=== PATIENT | female | born 1965 | race Caucasian/White ===

== ENCOUNTER 2016-12-01 19:29 | Emergency (ER) | payer OTHER ==
[2016-12-01] MEDS ORDERED: ACETAMINOPHEN WITH CODEINE 300MG/30MG TABLET PO ONE (19:49)
[2016-12-01 19:50] VITALS: BP 150/87; PULSE 86; TEMP 97.9; BMI 23.8
[2016-12-01] MEDS ORDERED: ACETAMINOPHEN WITH CODEINE 300MG/30MG TABLET ONE (20:42)
[2016-12-01] MEDS ORDERED: traMADol HCL 50 MG TABLET PO ONE (20:55)
--- NOTE | 2016-12-01 21:02 | PDOC ---
History of Present Illness - General Chief Complaint: Toothache Stated Complaint: TOOTHACHE Time Seen by Provider: 12/01/16 20:03 History Source: Patient - History of Present Illness Timing/Duration: other Past History - Past Medical History Allergies/Adverse Reactions: Allergies Allergy/AdvReac Type Severity Reaction Status Date / Time No Known Allergies Allergy Verified 12/01/16 19:47 Home Medications: Ambulatory Orders Aspirin [ASA -] 81 mg PO DAILY 06/15/15 Insulin Aspart [Novolog] 0 unit SQ AC 06/15/15 Insulin Glargine,Hum.rec.anlog [Lantus (nf)] 5 units SQ HS 06/15/15 Mycophenolate Mofetil [Cellcept -] 500 mg PO BID 06/15/15 Sitagliptin Phosphate [Januvia] 100 mg PO DAILY 06/15/15 Tacrolimus [Prograf] 2 mg PO BID 06/15/15 Oxycodone HCl [Roxicodone -] 5 mg PO Q6H #20 tablet 06/20/15 Tramadol HCl 50 mg PO Q6H #20 tablet MDD 200 12/01/16 Anemia: Yes Asthma: No Cancer: No Cardiac Disorders: No CVA: Yes COPD: No CHF: No Dementia: No Diabetes: Yes Dialysis: Yes GI Disorders: No Disorders: Yes (renal failure on dialysis //THURSDAY.) HTN: Yes Hypercholesterolemia: Yes Liver Disease: No Seizures: No Thyroid Disease: No - Surgical History Abdominal Surgery: No Appendectomy: No Cardiac Surgery: No Cholecystectomy: No Lung Surgery: No Neurologic Surgery: No Orthopedic Surgery: Yes (R. Shoulder) - Immunization History Immunization Up to Date: Yes - Psycho/Social/Smoking Cessation Hx Anxiety: No Suicidal Ideation: No Smoking Status: No Smoking History: Never smoked Have you smoked in the past 12 months: No Number of Cigarettes Smoked Daily: 0 Cigars Per Day: 0 Hx Alcohol Use: No Drug/Substance Use Hx: No Substance Use Type: None Hx Substance Use Treatment: No Review of Systems - Review of Systems Constitutional: No: Chills, Fever *Physical Exam - Vital Signs Last Vital Signs Temp Pulse Resp BP Pulse Ox 97.9 F 86 18 150/87 97 12/01/16 19:47 12/01/16 19:47 12/01/16 19:47 12/01/16 19:47 12/01/16 19:47 - Physical Exam General Appearance: Yes: Appropriately Dressed. No: Apparent Distress HEENT: positive: Normal Voice, Other (s/p filling to L lower wisdom tooth, no sweling or drainage, no facial swelling) Neck: positive: Supple. negative: Lymphadenopathy (R), Lymphadenopathy (L) Respiratory/Chest: negative: Respiratory Distress Integumentary: positive: Dry, Warm Neurologic: positive: Fully Oriented, Alert, Normal Mood/Affect ED Treatment Course - Medications Given in the ED: ED Medications Discontinued Medications Generic Name Dose Route Start Last Admin Trade Name Mel PRN Reason Stop Dose Admin Acetaminophen/Codeine Phosphate 1 tab 12/01/16 19:49 12/01/16 20:54 Tylenol # 3 - PO 12/01/16 19:50 1 tab ONCE ONE Administration Medical Decision Making - Medical Decision Making 12/01/16 21:09 50-year-old female, of diabetes, stroke, status post renal transplant, here with toothache. Patient states she was seen by her dentist about 20 days ago to have cavity to left lower wisdom teeth filled. States she continued to have dental pain and went back to her dentist and now is scheduled for dental extraction tomorrow, but here for pain control. Taking [id number] meds with no relief. No facial swelling, fever or chills. Patient well-appearing and stable in ED, no significant tenderness to site of left lower wisdom tooth and no erythema, swelling or other signs of dental abscess at this time. Discharge with pain control for dental follow-up in the a.m. *DC/Admit/Observation/Transfer Diagnosis at time of Disposition: Toothache - Discharge Dispostion Disposition: HOME Condition at time of disposition: Stable - Prescriptions Prescriptions: Tramadol HCl 50 mg PO Q6H #20 tablet MDD 200 - Patient Instructions Printed Discharge Instructions: DI for Dental Pain Additional Instructions: Please follow up with your dentist tomorrow
[2016-12-01] MEDS ORDERED: traMADol HCL 50 MG TABLET ONE (21:26)
== END 2016-12-01 21:43 | disposition home or self-care (01) ==
LOC: JERFT 19:29
DX: K08.89 Other specified disorders of teeth and supporting structures (principal); E11.9 Type 2 diabetes mellitus without complications; Z79.4 Long term (current) use of insulin; Z79.84 Long term (current) use of oral hypoglycemic drugs; I12.0 Hypertensive chronic kidney disease with stage 5 chronic kidney disease or end stage renal disease; N18.6 End stage renal disease; N17.8 Other acute kidney failure; Z99.2 Dependence on renal dialysis; Z94.0 Kidney transplant status; Z86.73 Personal history of transient ischemic attack (TIA), and cerebral infarction without residual deficits
CPT/HCPCS: 99281-25

== ENCOUNTER 2022-01-04 07:50 | Observation (INO) | payer OTHER ==
[2022-01-04] MEDS ORDERED: ACETAMINOPHEN 500 MG TABLET (FP) PO ONE (08:34)
[2022-01-04 08:56] LABS: EPI CELLS 2 /uL (0-25.1); HYALINE CASTS 0 /uL (0-3.1); PH,URINE 6.5 (5.0-8.0); URINE APPEARANCE CLEAR; URINE BACTERIA >9,000 /uL (0-1359); URINE BILIRUBIN NEGATIVE (NEGATIVE); URINE COLOR YELLOW; URINE GLUCOSE (UA) 3+ (NEGATIVE); URINE KETONE NEGATIVE (NEGATIVE); URINE LEUK ESTERASE NEGATIVE (NEGATIVE); URINE NITRITE POSITIVE (NEGATIVE); URINE PROTEIN NEGATIVE (NEGATIVE); URINE RBC 1 /uL (0-23.9); URINE UROBILINOGEN 0.2 mg/dL (0.2-1.0); URINE WBC 36 /uL (0-25.8)
[2022-01-04 09:59] LABS: BASO % 1.1 % (0-2.0); EOS % 1.5 % (0-4.5); HEMATOCRIT 38.5 % (32.4-45.2); HEMOGLOBIN 12.9 GM/dL (10.7-15.3); LYMPH % 26.1 % (8-40); MCH 29.6 pg (25.7-33.7); MCHC 33.5 g/dl (32.0-36.0); MEAN CELL VOLUME 88.3 fl (80-96); MEAN PLT VOLUME 8.3 fl (7.5-11.1); MONO % 5.2 % (3.8-10.2); NEUT % 66.1 % (42.8-82.8); PLATELET COUNT 215 10^3/uL (134-434); RBC 4.36 M/mm3 (3.60-5.2); RDW 13.1 % (11.6-15.6); WHITE BLOOD COUNT 4.4 K/mm3 (4.0-10.0)
[2022-01-04] MEDS ORDERED: VANCOMYCIN 1 GM in D5W (PRE-DOCKED) 1,000 MG/250 ML IVPB ONE (10:37)
[2022-01-04 10:45] LABS: CHLORIDE 100 mmol/L (98-107); SODIUM 136 mmol/L (136-145)
[2022-01-04] MEDS ORDERED: VANCOMYCIN 1 GRAM (PRE-DOCKED) 1,000 MG/250 ML BAG IVPB ONE (10:45)
[2022-01-04 10:46] LABS: ALBUMIN 3.9 g/dl (3.4-5.0); CALCIUM 9.7 mg/dL (8.5-10.1)
[2022-01-04 10:47] LABS: ANION GAP 6 MMOL/L (8-16); BLOOD UREA NITROGEN 26.9 mg/dL (7-18); CO2 31 mmol/L (21-32); MAGNESIUM 1.8 mg/dL (1.8-2.4)
[2022-01-04 10:50] LABS: SGOT/AST 30 U/L (15-37); SGPT/ALT 55 U/L (13-61)
[2022-01-04 10:51] LABS: BILIRUBIN,TOTAL 0.9 mg/dL (0.2-1); TOT PROT 6.9 g/dl (6.4-8.2)
[2022-01-04 10:53] LABS: ALK PHOS 213 U/L (45-117)
[2022-01-04 10:59] LABS: GLUCOSE,RANDOM 402 mg/dL (74-106)
[2022-01-04] MEDS ORDERED: SODIUM CHLORIDE 0.9% 500 ML INFUS.BAG IV ONE (11:02)
[2022-01-04] MEDS ORDERED: CEFTRIAXONE 1 GM in DEXTROSE 5%-WATER - 100 ML IVPB ONE (11:09)
[2022-01-04] MEDS ORDERED: CEFTRIAXONE 1 GM/50 ML BAG ONE (11:18)
[2022-01-04] MEDS ORDERED: ACETAMINOPHEN 325 MG TABLET (FP) PO PRN (12:49)
[2022-01-04] MEDS: amLODIPine BESYLATE 5 MG TABLET (FP) PO SCH (13:15)
[2022-01-04] MEDS: INSULIN SLIDING SCALE (NOVOLOG) 1 VIAL SQ SCH ×2 (16:33→21:54)
[2022-01-04 17:37] VITALS: BMI 27.0
[2022-01-04] MEDS: HEPARIN NA (PORCINE) 5,000 UNITS/ML 1ML VIAL SQ SCH (21:48)
[2022-01-04] MEDS: MYCOPHENOLATE MOFETIL 500 MG TABLET PO SCH (21:48)
[2022-01-04] MEDS ORDERED: INSULIN (LEVEMIR) 100 UNITS/ML UNITS SQ SCH (22:00)
[2022-01-04] MEDS: TACROLIMUS ANHYDROUS 1 MG CAPSULE PO SCH (22:23)
[2022-01-05] MEDS: INSULIN SLIDING SCALE (NOVOLOG) 1 VIAL SQ SCH ×4 (06:19→21:46)
[2022-01-05] MEDS ORDERED: DEXTROSE 5%-WATER - 50 ML IVPB ONE (09:34)
[2022-01-05] MEDS ORDERED: cefTRIAXone SODIUM 1 GM VIAL ONE (09:34)
[2022-01-05] MEDS: ASPIRIN 81 MG CHEWABLE TABLETS PO SCH (09:40)
[2022-01-05] MEDS: HEPARIN NA (PORCINE) 5,000 UNITS/ML 1ML VIAL SQ SCH ×2 (09:41→21:45)
[2022-01-05] MEDS: amLODIPine BESYLATE 5 MG TABLET (FP) PO SCH (09:41)
[2022-01-05] MEDS: CEFTRIAXONE 1 GM in DEXTROSE 5%-WATER - 50 ML IVPB SCH (09:41)
[2022-01-05] MEDS: TACROLIMUS ANHYDROUS 1 MG CAPSULE PO SCH ×2 (09:41→21:45)
[2022-01-05] MEDS: MYCOPHENOLATE MOFETIL 500 MG TABLET PO SCH ×2 (09:41→21:45)
[2022-01-05 10:23] LABS: BASO % 1.1 % (0-2.0); EOS % 1.8 % (0-4.5); HEMATOCRIT 38.2 % (32.4-45.2); HEMOGLOBIN 12.4 GM/dL (10.7-15.3); LYMPH % 36.9 % (8-40); MCH 29.1 pg (25.7-33.7); MCHC 32.4 g/dl (32.0-36.0); MEAN CELL VOLUME 89.9 fl (80-96); MONO % 6.7 % (3.8-10.2); NEUT % 53.5 % (42.8-82.8); PLATELET COUNT 230 10^3/uL (134-434); RBC 4.25 M/mm3 (3.60-5.2); RDW 13.1 % (11.6-15.6)
[2022-01-05 10:45] LABS: CALCIUM 8.9 mg/dL (8.5-10.1)
[2022-01-05 10:46] LABS: ALBUMIN 3.3 g/dl (3.4-5.0); BLOOD UREA NITROGEN 26.7 mg/dL (7-18)
[2022-01-05 10:49] LABS: CREATININE 0.9 mg/dL (0.55-1.3)
[2022-01-05 10:51] LABS: BILIRUBIN,TOTAL 1.2 mg/dL (0.2-1); TOT PROT 6.1 g/dl (6.4-8.2)
[2022-01-05 13:36] LABS: URIC ACID 3.6 mg/dL (2.6-7.2)
[2022-01-05] MEDS: INSULIN (LEVEMIR) 100 UNITS/ML UNITS SQ SCH (21:47)
[2022-01-05] MEDS ORDERED: ATORVASTATIN CA 20 MG TABLET (FP) PO SCH (22:00)
[2022-01-06] MEDS: INSULIN SLIDING SCALE (NOVOLOG) 1 VIAL SQ SCH ×2 (06:13→11:12)
[2022-01-06 07:47] LABS: BASO % 0.7 % (0-2.0); EOS % 1.3 % (0-4.5); HEMATOCRIT 38.3 % (32.4-45.2); HEMOGLOBIN 12.8 GM/dL (10.7-15.3); LYMPH % 28.6 % (8-40); MCH 30.1 pg (25.7-33.7); MCHC 33.5 g/dl (32.0-36.0); MEAN CELL VOLUME 89.9 fl (80-96); MEAN PLT VOLUME 8.7 fl (7.5-11.1); MONO % 5.3 % (3.8-10.2); NEUT % 64.1 % (42.8-82.8); PLATELET COUNT 233 10^3/uL (134-434); RBC 4.26 M/mm3 (3.60-5.2); RDW 13.5 % (11.6-15.6); WHITE BLOOD COUNT 4.8 K/mm3 (4.0-10.0)
[2022-01-06 08:58] LABS: CALCIUM 9.2 mg/dL (8.5-10.1)
[2022-01-06 08:59] LABS: ALBUMIN 3.4 g/dl (3.4-5.0); BLOOD UREA NITROGEN 26.1 mg/dL (7-18); MAGNESIUM 1.8 mg/dL (1.8-2.4)
[2022-01-06 09:03] LABS: BILIRUBIN,TOTAL 0.6 mg/dL (0.2-1); TOT PROT 6.5 g/dl (6.4-8.2)
[2022-01-06] MEDS ORDERED: cefTRIAXone SODIUM 1 GM VIAL ONE (09:07)
[2022-01-06] MEDS ORDERED: DEXTROSE 5%-WATER - 50 ML IVPB ONE (09:07)
[2022-01-06] MEDS: MYCOPHENOLATE MOFETIL 500 MG TABLET PO SCH (09:25)
[2022-01-06] MEDS: HEPARIN NA (PORCINE) 5,000 UNITS/ML 1ML VIAL SQ SCH (09:25)
[2022-01-06] MEDS: amLODIPine BESYLATE 5 MG TABLET (FP) PO SCH (09:25)
[2022-01-06] MEDS: ASPIRIN 81 MG CHEWABLE TABLETS PO SCH (09:25)
[2022-01-06] MEDS: CEFTRIAXONE 1 GM in DEXTROSE 5%-WATER - 50 ML IVPB SCH (09:25)
[2022-01-06] MEDS: TACROLIMUS ANHYDROUS 1 MG CAPSULE PO SCH (09:26)
[2022-01-06] MEDS: INSULIN (LEVEMIR) 100 UNITS/ML UNITS SQ SCH (09:26)
[2022-01-06] MEDS ORDERED: METOPROLOL TARTRATE 25 MG TABLET (FP) PO SCH (10:00)
[2022-01-06] MEDS ORDERED: metoPROLOL SUCCINATE 25 MG TAB.SR.24H (FP) PO SCH (10:00)
[2022-01-06 14:47] VITALS: PULSE 82; TEMP 98.1
[2022-01-06 15:33] VITALS: BP 140/78
== END 2022-01-06 16:23 | disposition home or self-care (01) ==
LOC: JER 07:50 → JERBED 11:10 → UNDOADMOB 11:10 → INTOOBSV 11:10 → J6S 14:03 → JERBED 14:03 → J6S 01-05 07:28
PROVIDERS: ADMIT Internal Medicine; ATTEND Nurse Practitioner Acute Care
PROC: 3E03329 Introduction of Other Anti-infective into Peripheral Vein, Percutaneous Approach (ICD-10-PCS; principal; 2022-01-05)
PROC: 3E023GC Introduction of Other Therapeutic Substance into Muscle, Percutaneous Approach (ICD-10-PCS; 2022-01-05)
PROC: 3E013VG Introduction of Insulin into Subcutaneous Tissue, Percutaneous Approach (ICD-10-PCS; 2022-01-05)
PROC: 3E0337Z Introduction of Electrolytic and Water Balance Substance into Peripheral Vein, Percutaneous Approach (ICD-10-PCS; 2022-01-05)
DX: Z86.73 Personal history of transient ischemic attack (TIA), and cerebral infarction without residual deficits (principal); N19 Unspecified kidney failure; Z99.2 Dependence on renal dialysis; I10 Essential (primary) hypertension; D64.9 Anemia, unspecified; E11.9 Type 2 diabetes mellitus without complications; M79.675 Pain in left toe(s); Z94.0 Kidney transplant status; Z79.4 Long term (current) use of insulin; N39.0 Urinary tract infection, site not specified
CPT/HCPCS: 36415; 71046-TC-FY; 73630-TC-LT; 74176-TC; 80053; 81003; 82962; 83036; 83735; 84484; 84550; 85025; 87086; 87186; 93005; 93010; 96361; 96365; 96372; 96375; 99285-25; C9803-CS; G0378; J1644; J7517; U0003; U0005